=== PATIENT | female | born 1990 | race Caucasian/White ===

== ENCOUNTER 2019-05-31 11:23 | Emergency (ER) | payer BC, OTHER ==
[2019-05-31] MEDS ORDERED: CYCLOBENZAPRINE 10 MG TAB ONE (12:08)
[2019-05-31] MEDS ORDERED: dexAMETHasone 10 MG/ML VIAL ONE (12:08)
[2019-05-31] MEDS ORDERED: LIDOCAINE 4% PATCH ONE (12:09)
--- NOTE | 2019-05-31 12:47 | ER ---
Nurse's Notes [facility] Name: Rosemarie Zepeda Age: 28 yrs Sex: Male : 1990 Arrival Date: 05/31/2019 Time: 11:25 Bed 15 Private MD: Diagnosis: Lumbago with sciatica, right side Presentation: 05/30 11:37 Chief complaint: Patient states: low back pain that radiates down R leg that began last ss night. No known injury. Coronavirus screen: The patient has NOT traveled to a country currently being monitored by the [facility] within the last 14 days. Proceed with normal triage procedures. Ebola Screen: Patient denies exposure to infectious person. Patient denies travel to an Ebola-affected area in the 21 days before illness onset. Initial Sepsis Screen: Does the patient meet any 2 criteria? No. Patient's initial sepsis screen is negative. Does the patient have a suspected source of infection? No. Patient's initial sepsis screen is negative. Risk Assessment: Do you want to hurt yourself or someone else? Patient reports no desire to harm self or others. 11:37 Method Of Arrival: Ambulatory ss 11:37 Acuity: SUNG 4 ss Historical: - Allergies: 11:38 No Known Allergies; ss - Home Meds: 11:38 None [Active]; ss - PMHx: 11:38 None; ss - PSHx: 11:38 None; ss - Immunization history:: Adult Immunizations up to date. - Social history:: Smoking status: Patient denies any tobacco usage or history of. Screenin:31 Abuse screen: Denies threats or abuse. Denies injuries from another. Nutritional ph screening: No deficits noted. Tuberculosis screening: No symptoms or risk factors identified. Fall Risk None identified. Assessment: 12:33 General: Appears in no apparent distress. uncomfortable, well groomed, Behavior is ph calm, cooperative, appropriate for age. Pain: Complains of pain in right low back Pain radiates to right leg. Neuro: Level of Consciousness is awake, alert, obeys commands, Oriented to person, place, time, situation. Cardiovascular: Capillary refill < 3 seconds in bilateral fingers Patient's skin is warm and dry. Respiratory: Airway is patent Respiratory effort is even, unlabored. Derm: Skin is intact, is healthy with good turgor. Vital Signs: 11:37 BP 146 / 79; Pulse 87; Resp 17; Temp 98.4(O); Pulse Ox 99% on R/A; Weight 104.33 kg; ss Height 5 ft. 2 in. (157.48 cm); Pain 6/10; 11:37 Body Mass Index 42.07 (104.33 kg, 157.48 cm) ED Course: 11:25 Patient arrived in ED. rg4 11:38 Triage completed. ss 11:38 Arm band placed on right wrist. ss 11:39 Mook Enriquez NP is PHCP. pm1 11:39 Reyes Pringle MD is Attending Physician. pm1 11:52 Aileen Villanueva RN is Primary Nurse. ph 12:32 Patient has correct armband on for positive identification. Pulse ox on. NIBP on. Door ph closed. Noise minimized. Warm blanket given. Head of bed lowered. 13:28 No provider procedures requiring assistance completed. Patient did not have IV access ph during this emergency room visit. Administered Medications: 12:15 Drug: Lidoderm 5 % (700 mg/patch) 1 patches Route: Topical; Site: affected area; ph 12:45 Follow up: Response: No adverse reaction; Pain is decreased ph 12:15 Drug: Flexeril 10 mg Route: PO; ph 12:45 Follow up: Response: No adverse reaction ph 12:15 Drug: Decadron 10 mg Route: IM; Site: right gluteus; ph 12:45 Follow up: Response: No adverse reaction ph Outcome: 12:46 Discharge ordered by MD. pm1 13:28 Patient left the ED. ss 13:28 Discharged to home ambulatory. ph 13:28 Condition: good 13:28 Discharge instructions given to patient, Instructed on discharge instructions, follow up and referral plans. medication usage, Demonstrated understanding of instructions, follow-up care, medications, Prescriptions given X 3. Signatures: Maisha Palmer RN RN Aileen Villanueva RN RN Mook Enriquez NP [employer] SERVICE WORKER pm1 Tracey Garcia rg4
--- NOTE | 2019-05-31 12:47 | EDPHYS ---
Physician Documentation [facility] Name: Rosemarie Zepeda Age: 28 yrs Sex: Male : 1990 Arrival Date: 05/31/2019 Time: 11:25 Bed 15 Private MD: ED Physician Reyes Pringle HPI: 05/30 11:50 This 28 yrs old Male presents to ER via Ambulatory with complaints of Back pm1 Pain. 11:50 The patient presents with pain that is acute. pm1 11:50 The symptoms are located in the low back. Onset: The symptoms/episode began/occurred pm1 last night. Radiation to right lower leg, right lower calf from right lower back. Associated signs and symptoms: Pertinent negatives: abdominal pain, chest pain, dysuria, fever, headache, nausea, numbness, tingling, vomiting, weakness. The problem was sustained from unknown cause, but got new chairs and movable desk tops at work. Severity of symptoms: in the emergency department the symptoms are actually worse. The patient has not experienced similar symptoms in the past. The patient has not recently seen a physician. No right lower leg swelling, numbness or tingling. Historical: - Allergies: 11:38 No Known Allergies; ss - Home Meds: 11:38 None [Active]; ss - PMHx: 11:38 None; ss - PSHx: 11:38 None; ss - Immunization history:: Adult Immunizations up to date. - Social history:: Smoking status: Patient denies any tobacco usage or history of. ROS: 11:50 Constitutional: Negative for fever, chills, and weight loss, Cardiovascular: Negative pm1 for chest pain, palpitations, and edema, Respiratory: Negative for shortness of breath, cough, wheezing, and pleuritic chest pain, Abdomen/GI: Negative for abdominal pain, nausea, vomiting, diarrhea, and constipation. 11:50 : Negative for injury, bleeding, discharge, and swelling, MS/Extremity: Negative for injury and deformity, Skin: Negative for injury, rash, and discoloration, Neuro: Negative for headache, weakness, numbness, tingling, and seizure. 11:50 Back: Positive for of the right low back, Negative for injury or acute deformity. Exam: 11:50 Constitutional: This is a well developed, well nourished patient who is awake, alert, pm1 and in no acute distress. Head/Face: Normocephalic, atraumatic. Neck: Trachea midline, no thyromegaly or masses palpated, and no cervical lymphadenopathy. Supple, full range of motion without nuchal rigidity, or vertebral point tenderness. No Meningismus. Chest/axilla: Normal chest wall appearance and motion. Nontender with no deformity. No lesions are appreciated. Cardiovascular: Regular rate and rhythm with a normal S1 and S2. No gallops, murmurs, or rubs. Normal PMI, no JVD. No pulse deficits. Respiratory: Lungs have equal breath sounds bilaterally, clear to auscultation and percussion. No rales, rhonchi or wheezes noted. No increased work of breathing, no retractions or nasal flaring. 11:50 Skin: Warm, dry with normal turgor. Normal color with no rashes, no lesions, and no evidence of cellulitis. MS/ Extremity: Pulses equal, no cyanosis. Neurovascular intact. Full, normal range of motion. 11:50 Back: pain, that is moderate, of the right low back, normal spinal alignment noted. 11:50 Neuro: Orientation: is normal, Motor: is normal, moves all fours, Sensation: is normal, no obvious gross deficits. 11:50 Neuro: Motor: strength is 5/5 in the right great toe dorsi and plantar flexion 5/5 pm1 strength. Vital Signs: 11:37 BP 146 / 79; Pulse 87; Resp 17; Temp 98.4(O); Pulse Ox 99% on R/A; Weight 104.33 kg; ss Height 5 ft. 2 in. (157.48 cm); Pain 6/10; 11:37 Body Mass Index 42.07 (104.33 kg, 157.48 cm) ss MDM: 11:39 Patient medically screened. pm1 12:18 Data reviewed: vital signs. Data interpreted: Pulse oximetry: on room air is 99 %. pm1 Interpretation: normal. 12:29 Counseling: I had a detailed discussion with the patient and/or guardian regarding: the pm1 historical points, exam findings, and any diagnostic results supporting the discharge/admit diagnosis, the need for outpatient follow up, to return to the emergency department if symptoms worsen or persist or if there are any questions or concerns that arise at home. 12:48 Medication response: 3 pain post medications given. pm1 Administered Medications: 12:15 Drug: Lidoderm 5 % (700 mg/patch) 1 patches Route: Topical; Site: affected area; ph 12:45 Follow up: Response: No adverse reaction; Pain is decreased ph 12:15 Drug: Flexeril 10 mg Route: PO; ph 12:45 Follow up: Response: No adverse reaction ph 12:15 Drug: Decadron 10 mg Route: IM; Site: right gluteus; ph 12:45 Follow up: Response: No adverse reaction ph Disposition: 05/31 07:39 Co-signature as Attending Physician, Reyes Pringle MD I agree with the assessment and lorena plan of care. Disposition: 05/31/19 12:46 Discharged to Home. Impression: Lumbago with sciatica, right side. - Condition is Stable. - Discharge Instructions: Back Pain, Adult, Sciatica. - Prescriptions for Lidoderm 5 % Topical adhesive patch,medicated - apply 1 patch by TRANSDERMAL route once daily As needed; 30 Transdermal Patch. Cyclobenzaprine 10 mg Oral Tablet - take 1 tablet by ORAL route every 8 hours As needed; 30 tablet. Medrol (Schuyler) 4 mg Oral Tablets, Dose Pack - take 1 tablet by ORAL route as directed - follow package instructions; 1 packet. - Work release form, Medication Reconciliation Form, Thank You Letter, Antibiotic Education, Prescription Opioid Use form. - Follow up: Emergency Department; When: As needed; Reason: Worsening of condition. Follow up: Private Physician; When: 2 - 3 days; Reason: Recheck today's complaints, Continuance of care, Re-evaluation by your physician. - Problem is new. - Symptoms have improved. Signatures: Reyes Pringle MD MD cha Smirch, Shelby, RN RN ss Aileen Villanueva RN RN ph Mook Enriquez, [employer] APPLICATION CLERK pm1 Corrections: (The following items were deleted from the chart) 05/30 13:28 12:46 05/31/2019 12:46 Discharged to Home. Impression: Lumbago with sciatica, right ss side. Condition is Stable. Discharge Instructions: Back Pain, Adult, Sciatica. Prescriptions for Lidoderm 5 % Topical adhesive patch,medicated - apply 1 patch by TRANSDERMAL route once daily As needed; 30 Transdermal Patch, Cyclobenzaprine 10 mg Oral Tablet - take 1 tablet by ORAL route every 8 hours As needed; 30 tablet, Medrol (Schuyler) 4 mg Oral Tablets, Dose Pack - take 1 tablet by ORAL route as directed - follow package instructions; 1 packet. and Forms are Medication Reconciliation Form, Thank You Letter, Antibiotic Education, Prescription Opioid Use. Follow up: Emergency Department; When: As needed; Reason: Worsening of condition. Follow up: Private Physician; When: 2 - 3 days; Reason: Recheck today's complaints, Continuance of care, Re-evaluation by your physician. Problem is new. Symptoms have improved. pm1
[2019-05-31 13:37] VITALS: BP 146/79; TEMP 98.4; O2SAT 99
== END 2019-05-31 13:28 | disposition home or self-care (01) ==
LOC: EDSEX → ER 11:23
DX: M54.41 Lumbago with sciatica, right side (principal)
CPT/HCPCS: 96372; 99283; J1100

== ENCOUNTER 2019-06-01 10:46 | Emergency (ER) | payer BC ==
[2019-06-01] MEDS ORDERED: MEPERIDINE HCL 25 MG/0.5 ML ONE (11:06)
--- NOTE | 2019-06-01 11:53 | RAD REPORT ---
EXAM DESCRIPTION: CT - [id number] - 06/01/2019 11:25 am CLINICAL HISTORY: Trauma, head and neck injury. fall, unknown LOC COMPARISON: Pelvis Wo Cont dated 06/01/2019; Spine Lumbar Wo Con dated 06/01/2019 TECHNIQUE: Axial 5 mm thick images of the head were obtained. Axial 2 mm thick images of the cervical spine were obtained with sagittal and coronal reconstruction images generated and reviewed. All CT scans are performed using dose optimization technique as appropriate and may include automated exposure control or mA/KV adjustment according to patient size. FINDINGS: CT HEAD WITHOUT CONTRAST: No acute hemorrhage, hydrocephalus or extra-axial collection is identified.No areas of brain edema or midline shift. The paranasal sinuses and mastoids are clear.The calvarium is intact. CT CERVICAL SPINE WITHOUT CONTRAST: No fracture or subluxation.Mild upper cervical spondylosis, most notable at the C4-5 and C5-6.No prev ertebral soft tissues swelling is identified. IMPRESSION: No acute intracranial or cervical spine findings.
--- NOTE | 2019-06-01 11:57 | RAD REPORT ---
EXAM DESCRIPTION: CT - Pelvis Wo Cont - 06/01/2019 11:25 am CLINICAL HISTORY: pelvic/right hip pain after fall COMPARISON: No comparisons TECHNIQUE: All CT scans are performed using dose optimization technique as appropriate and may inclu de automated exposure control or mA/KV adjustment according to patient size. FINDINGS: Sclerotic changes are seen involving both SI joints, slightly greater on the left, suggest ing sacroiliitis. There is no evidence of acute fracture or dislocation. No AVN pattern is observed. No soft tissue mass or hematoma seen. IMPRESSION: No acute abnormality is detected
--- NOTE | 2019-06-01 12:03 | RAD REPORT ---
EXAM DESCRIPTION: CT - Spine Lumbar Wo Con - 06/01/2019 11:25 am CLINICAL HISTORY: Radiculopathy. fall;Lower back pain COMPARISON: No comparisons TECHNIQUE: Axial noncontrast CT imaging of the lumbar spine was performed with coronal and sagittal re-formatted images. All CT scans are performed using dose optimization technique as appropriate and may include automated exposure control or mA/KV adjustment according to patient size. FINDINGS: No acute lumbar spine fracture seen. No aggressive marrow pattern or malalignment. Paraspinal tissues are normal in thickness. No paraspinal abscess or hematoma seen. Posterior disc bulges or herniations are present lower lumbar spine, incompletely assessed. IMPRESSION: No acute lumbar spine abnormality. Posterior disc bulge or lesions are present lower lumbar levels. Followup nonemergent MR imaging the lumbar spine would be suggested.
--- NOTE | 2019-06-01 13:00 | ER ---
Nurse's Notes [facility] Name: Rosemarie Zepeda Age: 28 yrs Sex: Female : 1990 Arrival Date: 06/01/2019 Time: 10:52 Bed 14 Private MD: Diagnosis: Radiculopathy, lumbosacral region;Sacroiliitis, not elsewhere classified Presentation: 05/31 10:45 Chief complaint: EMS states: pt was seen here yesterday for lower back pain, she thinks tw2 its from and adjustment from a chiropractor, she was leaning over the tub to soak her muscles and she says her back seized up and she fell over the toilet, she doesn't remember getting down, possible LOC, vs stable. 10:45 Onset of symptoms was June 01, 2019. tw2 10:53 Coronavirus screen: The patient has NOT traveled to a country currently being monitored tw2 by the [facility] within the last 14 days. Ebola Screen: Patient denies exposure to infectious person. Initial Sepsis Screen: Does the patient meet any 2 criteria? No. Patient's initial sepsis screen is negative. Does the patient have a suspected source of infection? No. Patient's initial sepsis screen is negative. Risk Assessment: Do you want to hurt yourself or someone else? Patient reports no desire to harm self or others. 10:53 Acuity: SUNG 3 tw2 10:53 Method Of Arrival: EMS: [facility] tw2 Triage Assessment: 10:45 General: Appears uncomfortable, obese, Behavior is cooperative, appropriate for age. tw2 Pain: Complains of pain in right low back. Musculoskeletal: Circulation, motion, and sensation intact. ANIMATION ARTIST: 11:45 LMP N/A - , tw2 Historical: - Allergies: 11:45 No Known Allergies; tw2 - Home Meds: 11:45 None [Active]; tw2 - PMHx: 11:45 skin cancer; tw2 - PSHx: 11:45 None; tw2 - Immunization history:: Adult Immunizations. - Social history:: Smoking status: . - Family history:: not pertinent. - Hospitalizations: : No recent hospitalization is reported. Screenin:57 Abuse screen: Denies threats or abuse. Nutritional screening: No deficits noted. tw2 Tuberculosis screening: No symptoms or risk factors identified. Fall Risk None identified. Assessment: 11:42 Reassessment: Patient appears in no apparent distress at this time. No changes from tw2 previously documented assessment. Patient and/or family updated on plan of care and expected duration. Pain level reassessed. Patient is alert, oriented x 3, equal unlabored respirations, skin warm/dry/pink. 12:40 Reassessment: Patient appears in no apparent distress at this time. No changes from tw2 previously documented assessment. Patient and/or family updated on plan of care and expected duration. Pain level reassessed. Patient is alert, oriented x 3, equal unlabored respirations, skin warm/dry/pink. "now other things hurt because of this collar", provider notified. Patient states symptoms have not improved. 12:46 Reassessment: provider at bedside at this time, c-collar removed per providers verbal tw2 order. Vital Signs: 10:52 BP 138 / 78; Pulse 91; Resp 17; Pulse Ox 100% on R/A; tw2 10:52 Temp 98.0(O); tw2 11:40 BP 143 / 80; Pulse 81; Resp 17; Pulse Ox 98% on R/A; tw2 12:45 BP 136 / 74; Pulse 91; Resp 17; Pulse Ox 100% on R/A; tw2 ED Course: 10:52 Patient arrived in ED. tw2 10:52 Eriberto Bright MD is Attending Physician. rn 10:52 Carly Hill RN is Primary Nurse. tw2 10:52 Bed in low position. Call light in reach. Pulse ox on. NIBP on. tw2 10:56 Triage completed. tw2 10:57 Arm band placed on. tw2 11:05 Inserted saline lock: 20 gauge in right antecubital area, using aseptic technique. tw2 ,using aseptic technique. by [employer] tech with direct observation of my self YOLANDA Carroll as primary nurse, pt tolerated well. 11:26 CT Lumbar Spine Wo Con In Process Unspecified. EDMS 11:26 CT Head C Spine In Process Unspecified. EDMS 11:26 CT Pelvis wo Cont In Process Unspecified. EDMS 13:08 No provider procedures requiring assistance completed. IV discontinued, intact, tw2 bleeding controlled, No redness/swelling at site. Pressure dressing applied. Administered Medications: 11:05 Drug: Demerol 25 mg Route: IVP; Site: right antecubital; tw2 12:45 Follow up: Response: No adverse reaction; Pain is unchanged, physician notified tw2 Outcome: 12:58 Discharge ordered by . rn 13:08 Patient left the ED. tw2 13:08 Discharged to home ambulatory, with family, with significant other. tw2 13:08 Condition: stable 13:08 Discharge instructions given to patient, family, significant other, Instructed on discharge instructions, follow up and referral plans. Demonstrated understanding of instructions, follow-up care. Signatures: Dispatcher [employer] EDMS Eriberto Bright MD MD rn Wise, Tara, RN RN tw2 Corrections: (The following items were deleted from the chart) 11:47 11:46 Rigid cervical collar applied tw2 tw2 12:46 12:40 BP 143 / 80; Pulse 81bpm; Resp 17bpm; Pulse Ox 98% RA; tw2 tw2
--- NOTE | 2019-06-01 13:01 | EDPHYS ---
Physician Documentation [facility] Name: Rosemarie Zepeda Age: 28 yrs Sex: Female : 1990 Arrival Date: 06/01/2019 Time: 10:52 Bed 14 Private MD: ED Physician Eriberto Bright HPI: 05/31 10:56 This 28 yrs old Male presents to ER via Unassigned with complaints of Back rn Pain. 10:56 The patient presents with pain that is acute. rn 10:57 The symptoms are located in the low back. Onset: The symptoms/episode began/occurred rn just prior to arrival. The pain radiates to the right leg. Associated signs and symptoms: Pertinent negatives: abdominal pain, chest pain, fever, hematuria, incontinence, nausea, numbness, tingling, urinary retention, vomiting, weakness. Modifying factors: The patient symptoms are alleviated by remaining still, the patient symptoms are aggravated by any movement. Severity of symptoms: At their worst the symptoms were moderate, in the emergency department the symptoms are unchanged. The patient has experienced similar episodes in the past. The patient has been recently seen by a physician: The patient has been recently seen at the [facility] Emergency Department. Reports seen here yesterday for back pain, sent home with muscle relaxer, thinks was from chiropractor adjustment recently, no bowel/bladder issues, today was going to take warm bath to help back, fell forward, does not think she hit head but is not sure. Unclear if LOC. Reports increased pain to back and tingling down right leg after fall. No weakness. Was able to get from bathroom to bedroom after fall. . 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 - Social history:: Smoking status: . - Family history:: not pertinent. - Hospitalizations: : No recent hospitalization is reported. ROS: 10:57 Constitutional: Negative for fever, chills, and weight loss, Eyes: Negative for injury, rn pain, redness, and discharge, Neck: Negative for injury, pain, and swelling, Cardiovascular: Negative for chest pain, palpitations, and edema, Respiratory: Negative for shortness of breath, cough, wheezing, and pleuritic chest pain, Abdomen/GI: Negative for abdominal pain, nausea, vomiting, diarrhea, and constipation, Back: + right lower back pain MS/Extremity: Negative for injury and deformity, Skin: Negative for injury, rash, and discoloration, Neuro: Negative for headache, weakness, and seizure. Exam: 10:57 Constitutional: This is a well developed, well nourished patient who is awake, alert, rn on backboard and moderate pain Head/Face: Normocephalic, atraumatic. Neck: In ccollar, no midline tenderness Chest/axilla: Normal chest wall appearance and motion. Nontender with no deformity. No lesions are appreciated. Cardiovascular: Regular rate and rhythm. No pulse deficits. Respiratory: Equal breath sounds. No increased work of breathing, no retractions or nasal flaring. Abdomen/GI: soft, non-tender Back: No spinal tenderness. + right lower perilumbar tenderness, no skin changes MS/ Extremity: Pulses equal, no cyanosis. Neurovascular intact. Painful with right and leg straight leg raise and right hip flexion. No focal hip tenderness. Neuro: Awake and alert, GCS 15, oriented to person, place, time, and situation. Motor strength 5/5 in all extremities. Sensory grossly intact. Vital Signs: 10:52 BP 138 / 78; Pulse 91; Resp 17; Pulse Ox 100% on R/A; tw2 10:52 Temp 98.0(O); tw2 11:40 BP 143 / 80; Pulse 81; Resp 17; Pulse Ox 98% on R/A; tw2 12:45 BP 136 / 74; Pulse 91; Resp 17; Pulse Ox 100% on R/A; tw2 MDM: 10:52 Patient medically screened. rn 12:57 Differential diagnosis: arthritis, Fatigue Fracture Osteoarthritis sprain, vertebral rn fracture, sacroiliitis, radiculopathy, disc bulge. Data reviewed: vital signs, nurses notes, radiologic studies, CT scan, and as a result, I will discharge patient. Counseling: I had a detailed discussion with the patient and/or guardian regarding: the historical points, exam findings, and any diagnostic results supporting the discharge/admit diagnosis, radiology results, the need for outpatient follow up, to return to the emergency department if symptoms worsen or persist or if there are any questions or concerns that arise at home. Response to treatment: the patient's symptoms have markedly improved after treatment, and as a result, I will discharge patient. Special discussion: I discussed with the patient/guardian in detail that at this point there is no indication for admission to the hospital. It is understood, however, that if the symptoms persist or worsen the patient needs to return immediately for re-evaluation. Based on the history and exam findings, there is no indication for further emergent testing or inpatient evaluation. I discussed with the patient/guardian the need to see the back specialist for further evaluation of the symptoms. 05/31 10:53 Order name: CT Lumbar Spine Wo Con; Complete Time: 12:09 rn 05/31 10:53 Order name: IV Start; Complete Time: 12:45 rn 05/31 10:53 Order name: CT Head C Spine; Complete Time: 12: rn 05/31 10:54 Order name: CT Pelvis wo Cont; Complete Time: 12:09 rn Administered Medications: 11:05 Drug: Demerol 25 mg Route: IVP; Site: right antecubital; tw2 12:45 Follow up: Response: No adverse reaction; Pain is unchanged, physician notified tw2 Disposition: 06/01/19 12:58 Discharged to Home. Impression: Radiculopathy, lumbosacral region, Sacroiliitis, not elsewhere classified. - Condition is Stable. - Discharge Instructions: Lumbosacral Radiculopathy. - Medication Reconciliation Form, Thank You Letter, Antibiotic Education, Prescription Opioid Use, Work release form, Family Work Release form. - Follow up: Private Physician; When: As needed; Reason: Recheck today's complaints, Re-evaluation by your physician. - Problem is an ongoing problem. - Symptoms have improved. Signatures: Dispatcher [employer] [facility] Eriberto Bright MD MD rn Wise, Tara, RN RN tw2 Corrections: (The following items were deleted from the chart) 11:04 10:54 Pelvis+[email or web address] ordered. [facility] 13:08 12:58 06/01/2019 12:58 Discharged to Home. Impression: Radiculopathy, lumbosacral tw2 region; Sacroiliitis, not elsewhere classified. Condition is Stable. Forms are Work release form, Family Work Release, Medication Reconciliation Form, Thank You Letter, Antibiotic Education, Prescription Opioid Use. Follow up: Private Physician; When: As needed; Reason: Recheck today's complaints, Re-evaluation by your physician. Problem is an ongoing problem. Symptoms have improved. rn
[2019-06-01 13:23] VITALS: TEMP 98
[2019-06-01 13:26] VITALS: BP 136/74; O2SAT 100
== END 2019-06-01 13:08 | disposition home or self-care (01) ==
LOC: ER 10:46 → EDSEX 10:46 → ER 13:08
DX: M54.17 Radiculopathy, lumbosacral region (principal); M46.1 Sacroiliitis, not elsewhere classified
CPT/HCPCS: 72131; 70450; 72125; 72192; 96374; 99284; J2175